=== PATIENT | male | born 1960 | race Caucasian/White ===

== ENCOUNTER → 2019-04-06 | Day surgery (SDC) | payer OTHER ==
--- NOTE | 2019-04-02 12:41 | Diagnostic Imaging Report ---
EXAMINATION: CHEST 2 VIEWS INDICATION: Pre-operative. COMPARISON: None FINDINGS: TUBES and LINES: None. LUNGS: Lungs are well inflated. Lungs are clear. There is no evidence of pneumonia or pulmonary edema. PLEURA: No pleural effusion or pneumothorax. HEART AND MEDIASTINUM: The cardiomediastinal silhouette is unremarkable. BONES AND SOFT TISSUES: No acute osseous lesion. Soft tissues are unremarkable. UPPER ABDOMEN: No free air under the diaphragm. IMPRESSION: No acute radiographic abnormality. Signed by: Dr. Juan Willis MD on 04/02/2019 12:38 PM
--- NOTE | 2019-04-05 12:24 | Pre Op History & Physical ---
DATE OF SURGERY: 04/06/2019. CHIEF COMPLAINT: Left neck mass. HISTORY OF PRESENT ILLNESS: This 58 years old male was noted to have 1 year history of left neck mass. The patient has been treated with antibiotics with no improvement. The patient had a MRI of the C-spine, which also confirmed a neck mass. He denies any dysphagia, odynophagia, or shortness of breath. The patient smokes a pack and a half a day and drinks a few beers per day. CT scan of the neck ordered by me showed the patient has multiple variable sized nodules and lymph nodes in the left posterior triangle, lymphoma and inflammatory disease and metastatic disease cannot be ruled out. REVIEW OF SYSTEMS: System review showed no recent cardiovascular, respiratory, GI problem. PAST MEDICAL HISTORY: The patient has a history of hepatitis C. PAST SURGICAL HISTORY: He has no previous surgery. ALLERGIES: HE IS ALLERGIC TO PENICILLIN, AMPICILLIN, AND TETRACYCLINE. MEDICATIONS: He is on hydrocodone, Flexeril, and ibuprofen. SOCIAL HISTORY: He smokes about a pack and a half a day and drinks about three beers per day. FAMILY HISTORY: Noncontributory. PHYSICAL EXAMINATION: VITAL SIGNS: On examination, the patient's vital signs were within normal limits. He was seen with his . HEENT: Ear exam showed normal tympanic membranes bilaterally. Nasal exam showed deviated nasal septum on the right side about 20%. Nasal endoscopy showed mobile vocal folds bilaterally with no lesion in the hypopharynx. Oropharynx and oral cavity showed dentures upper and lower. No other abnormality was noted. NECK: Show left neck mass from the jugulodigastric area all the way to the posterior triangle. No thyroid is palpable. CHEST: Showed good air entry bilaterally. CARDIOVASCULAR: Showed S1, S2. No murmur noted. ASSESSMENT AND PLAN: Mr. García has left neck masses. This has been going on for about a year. The suggested treatment is panendoscopy, biopsy, and excisional biopsy of left neck mass, possibly in the jugulodigastric area but also possibly in the posterior triangle and other necessary procedure. Complication of procedure includes, but not limited to bleeding, infection, facial nerve injury, accessory nerve injury, perforation of the esophagus, pneumomediastinum, mediastinitis, airway compromise, persistent recurrence of problem along with great auricular nerve injury and hypoglossal nerve injury along with poor cosmetic results. Alternative will be continue observation, fine-needle aspiration of the lymph node. The patient and his have elected to undergo surgical procedure. He has been advised to stop his ibuprofen at least 5 to 7 days before surgery. The patient had a chest x-ray before surgery, which did not show any abnormality. MD SIVA Zambrano/KENIA /[id number] cc: Rigo Strong
[~2019-04-06] MED LIST: ACETAMINOPHEN 1000 MG/100 ML 100 ML IV ONE; CYCLOBENZAPRINE10 MG PO; DEXAMETHASONE SOD PHOS INJ 4 MG/ML VIAL ONE; FENTANYL CITRATE/PF 100MCG/2 ML INJ ONE; HYDROCODONE/APAP 7.5MG-325MG 1 EA TAB ONE; IBUPROFEN600 MG PO; LIDOCAINE 1% W/EPINEPHRINE 20 ML VIAL ONE; LIDOCAINE HCL (LTA) 4 ML SOLN ONE; LIDOCAINE HCL 2% LOCAL INJ 5 ML SDV VIAL INJ ONE; MIDAZOLAM HCL 2 MG/2 ML VIAL ONE; NORCO 10-325 T1 EACH PO; ONDANSETRON HCL INJ 2MG/ML 2ML 2 MG/ML VIAL ONE; PROPOFOL IV EMULSION 10 MG/ML 20 ML VIAL ONE; ROCURONIUM BROMIDE 10 MG/ML 5ML VIAL ONE; SEVOFLURANE INHAL SOLN 250 ML PEN BTL ONE
--- OUTSIDE RECORDS SUMMARY | 2019-04-06 09:18 | XMS REPORT | Clinical Summary ---
Author Author [facility] Organization [facility] Address Unknown Phone Unavailable Care Team Providers Care Heavy Equipment Diesel Mechanic Name Role Phone Asked, No Pcp PCP Unavailable Allergies Comments Active Allergy Reactions Severity Noted Date Ampicillin 11/18/2017 Penicillin 11/18/2017 Tetracycline 11/18/2017 Medications End Date Status Medication Sig Dispensed Refills Start Date Active cyclobenzaprine Take 5 mg by 1 (FLEXERIL) 5 mg tablet mouth 2 (two) 8 times a day. Active HYDROcodone-acetaminophen 0 (NORCO) 10-325 mg per 8 tablet Active gabapentin (NEURONTIN) Take 100 mg 0 100 mg capsule by mouth 2 (two) times a day. Active sofosbuvir-velpatasvir Take 1 tablet 0 (EPCLUSA) 400-100 mg by mouth tablet daily. Active ribavirin (REBETOL) 200 Take 200 mg 0 MG capsule by mouth daily before breakfast. Active ribavirin (REBETOL) 200 Take 400 mg 0 MG capsule by mouth every evening. Active diclofenac (VOLTAREN) 1 % Apply 100 g 1 gel topically 4 8 (four) times a day. Active Problems Problem Noted Date Neck pain, musculoskeletal 05/12/2018 Hepatic fibrosis 05/12/2018 Abnormal LFTs 11/18/2017 Rash of hands 11/18/2017 Hepatitis C virus infection without hepatic coma 11/18/2017 Itching 11/18/2017 Encounters Care Team Description Date Type Specialty Arabella Juarez MA 01/01/2019 Telephone Hepatology Arabella Juarez MA Hepatitis C virus infection without hepatic coma, unspecified chronicity (Primary Dx) 12/09/2018 Orders Only Hepatology Alphonso Caballero MD Roitsch, Ashley Aryn, CHRISTINA Chronic hepatitis C without hepatic coma (HCC) (Primary Dx); Hepatic fibrosis; Abnormal LFTs 07/16/2018 Office Visit Hepatology Alphonso Caballero MD 07/09/2018 Telephone Hepatology Indra Burris MD Acute hepatitis C virus infection without hepatic coma; Hepatic fibrosis; Abnormal LFTs; Rash of hands 07/08/2018 Hospital Radiology Encounter Indra Burris MD Acute hepatitis C virus infection without hepatic coma; Hepatic fibrosis; Abnormal LFTs; Rash of hands 07/08/2018 Hospital Radiology Encounter Arabella Juarez MA Chronic hepatitis C without hepatic coma (HCC) (Primary Dx) 06/26/2018 Orders Only Hepatology Richa Griffith MA 06/23/2018 Refill Hepatology Alphonso Caballero MD Calaris, Deborah, PAC Acute hepatitis C virus infection without hepatic coma (Primary Dx); Hepatic fibrosis; Abnormal LFTs; Rash of hands 06/16/2018 Office Visit Hepatology Alphonso Caballero MD Calaris, Deborah, PAC Hepatitis C virus infection without hepatic coma, unspecified chronicity (Primary Dx); Rash of hands; Itching; Abnormal LFTs; Neck pain, musculoskeletal; Hepatic fibrosis 05/12/2018 Office Visit Hepatology Arabella Juarez MA Hepatitis C virus infection without hepatic coma, unspecified chronicity (Primary Dx) 04/09/2018 Orders Only Hepatology after 04/05/2018 Family History Medical History Relation Name Comments Heart attack Father Diabetes Mother Heart attack Mother Diabetes Sister Heart attack Sister Relation Name Status Comments Father Mother Sister Social History Date Tobacco Use Types Packs/Day Years Used Current Every Day Smoker 2 Smokeless Tobacco: Never Used Alcohol Use Drinks/Week oz/Week Comments Yes 14 Standard 8.4 drinks or equivalent Sex Assigned at Date Recorded Not on file Industry Job Start Date Occupation Not on file Not on file Not on file Travel End Travel History Travel Start No recent travel history available. Last Filed Vital Signs Time Taken Vital Sign Reading 07/16/2018 11:19 AM CDT Blood Pressure 136/80 07/16/2018 11:19 AM CDT Pulse 80 07/16/2018 11:19 AM CDT Temperature 36.1 C (97 F) 05/12/2018 2:18 PM CDT Respiratory Rate 18 07/16/2018 11:19 AM CDT Oxygen Saturation 99% - Inhaled Oxygen - Concentration 07/16/2018 11:19 AM CDT Weight 81.2 kg (179 lb) 06/16/2018 10:56 AM CDT Height 175.3 cm (5' 9") 06/16/2018 10:56 AM CDT Body Mass Index 26.43 Plan of Treatment Health Maintenance Due Date Last Done Comments COLONOSCOPY SCREENING 2011 SHINGLES VACCINES (#1) 2011 INFLUENZA VACCINE 04/22/2019 Procedures Comments Procedure Name Priority Date/Time Associated Diagnosis PROTHROMBIN TIME WITH INR Routine 10/06/2018 Chronic hepatitis C 2:13 PM BATT MACHINE OPERATOR without hepatic coma (HCC) HCV QUANTITATIVE PCR Routine 10/06/2018 Chronic hepatitis C 2:13 PM BATT MACHINE OPERATOR without hepatic coma (HCC) GGT Routine 10/06/2018 Chronic hepatitis C 2:13 PM BATT MACHINE OPERATOR without hepatic coma (HCC) COMPREHENSIVE METABOLIC Routine 10/06/2018 Chronic hepatitis C PANEL 2:13 PM BATT MACHINE OPERATOR without hepatic coma (HCC) CBC WITH PLATELET AND Routine 10/06/2018 Chronic hepatitis C DIFFERENTIAL 2:13 PM BATT MACHINE OPERATOR without hepatic coma (HCC) ALPHA FETOPROTEIN Routine 10/06/2018 Chronic hepatitis C 2:13 PM BATT MACHINE OPERATOR without hepatic coma (HCC) PROTHROMBIN TIME WITH INR Routine 07/08/2018 Chronic hepatitis C 12:35 PM CDT without hepatic coma (HCC) HCV QUANTITATIVE PCR Routine 07/08/2018 Chronic hepatitis C 12:35 PM CDT without hepatic coma (HCC) ALPHA FETOPROTEIN Routine 07/08/2018 Chronic hepatitis C 12:35 PM CDT without hepatic coma (HCC) COMPREHENSIVE METABOLIC Routine 07/08/2018 Chronic hepatitis C PANEL 12:35 PM CDT without hepatic coma (HCC) CBC WITH PLATELET AND Routine 07/08/2018 Chronic hepatitis C DIFFERENTIAL 12:35 PM CDT without hepatic coma (HCC) US ABDOMINAL DOPPLER Routine 07/08/2018 Acute hepatitis C virus 11:24 AM CDT infection without hepatic coma Hepatic fibrosis Abnormal LFTs Rash of hands US ABDOMINAL WITH LIVER Routine 07/08/2018 Acute hepatitis C virus ELASTOGRAPHY 10:29 AM CDT infection without hepatic coma Hepatic fibrosis Abnormal LFTs Rash of hands HEPATITIS C VIRAL RNA, Routine 06/16/2018 Acute hepatitis C virus QUANTITATIVE REAL-TIME 11:37 AM CDT infection without hepatic PCR WITH REFLXS coma Hepatic fibrosis Abnormal LFTs Rash of hands PROTHROMBIN TIME WITH INR Routine 06/16/2018 Acute hepatitis C virus 11:37 AM CDT infection without hepatic coma Hepatic fibrosis Abnormal LFTs Rash of hands COMPREHENSIVE METABOLIC Routine 06/16/2018 Acute hepatitis C virus PANEL 11:37 AM CDT infection without hepatic coma Hepatic fibrosis Abnormal LFTs Rash of hands CBC WITH PLATELET AND Routine 06/16/2018 Acute hepatitis C virus DIFFERENTIAL 11:37 AM CDT infection without hepatic coma Hepatic fibrosis Abnormal LFTs Rash of hands PROTHROMBIN TIME WITH INR Routine 06/03/2018 Hepatitis C virus 11:52 AM CDT infection without hepatic coma, unspecified chronicity Rash of hands Itching Abnormal LFTs HCV QUANTITATIVE PCR Routine 06/03/2018 Hepatitis C virus 11:52 AM CDT infection without hepatic coma, unspecified chronicity Rash of hands Itching Abnormal LFTs GGT Routine 06/03/2018 Hepatitis C virus 11:52 AM CDT infection without hepatic coma, unspecified chronicity Rash of hands Itching Abnormal LFTs COMPREHENSIVE METABOLIC Routine 06/03/2018 Hepatitis C virus PANEL 11:52 AM CDT infection without hepatic coma, unspecified chronicity Rash of hands Itching Abnormal LFTs CBC WITH PLATELET AND Routine 06/03/2018 Hepatitis C virus DIFFERENTIAL 11:52 AM CDT infection without hepatic coma, unspecified chronicity Rash of hands Itching Abnormal LFTs PROTHROMBIN TIME WITH INR Routine 05/12/2018 Hepatitis C virus 3:18 PM CDT infection without hepatic coma, unspecified chronicity Abnormal LFTs HCV QUANTITATIVE PCR Routine 05/12/2018 Hepatitis C virus 3:18 PM CDT infection without hepatic coma, unspecified chronicity Abnormal LFTs GGT Routine 05/12/2018 Hepatitis C virus 3:18 PM CDT infection without hepatic coma, unspecified chronicity Abnormal LFTs COMPREHENSIVE METABOLIC Routine 05/12/2018 Hepatitis C virus PANEL 3:18 PM CDT infection without hepatic coma, unspecified chronicity Abnormal LFTs CBC WITH PLATELET AND Routine 05/12/2018 Hepatitis C virus DIFFERENTIAL 3:18 PM CDT infection without hepatic coma, unspecified chronicity Abnormal LFTs HCV QUANTITATIVE PCR Routine 04/21/2018 Hepatitis C virus 2:11 PM CDT infection without hepatic coma, unspecified chronicity PROTHROMBIN TIME WITH INR Routine 04/21/2018 Hepatitis C virus 2:11 PM CDT infection without hepatic coma, unspecified chronicity GGT Routine 04/21/2018 Hepatitis C virus 2:11 PM CDT infection without hepatic coma, unspecified chronicity COMPREHENSIVE METABOLIC Routine 04/21/2018 Hepatitis C virus PANEL 2:11 PM CDT infection without hepatic coma, unspecified chronicity CBC WITH PLATELET AND Routine 04/21/2018 Hepatitis C virus DIFFERENTIAL 2:11 PM CDT infection without hepatic coma, unspecified chronicity ALPHA FETOPROTEIN Routine 04/21/2018 Hepatitis C virus 2:11 PM CDT infection without hepatic coma, unspecified chronicity after 04/05/2018 Results * HCV Quantitative PCR (10/06/2018 2:13 PM BATT MACHINE OPERATOR) Only the most recent of 5 results within the time period is included. Hepatitis C <15 NOT DETECTED NOT DETECTED IU/mL [facility] quantitative, [facility] PCR ING II Hepatitis C <1.18 NOT DETECTED NOT DETECTED Log [facility] quantitative, IU/mL [facility] PCR ING II (Always Comment: [facility] message) This test was performed using [facility] Real-Time Polymerase Chain ING II Reaction. Reportable Range: 15 IU/mL to 100,000,000 IU/mL (1.18 Log IU/mL to 8.00 Log IU/mL). The analytical performance characteristics of this assay have been determined by [facility]. The modifications have not been cleared or approved by the FDA. This assay has been validated pursuant to the CLIA regulations and is used for clinical purposes. For more information on this test, go to: http://meets.iPowerUp/faq/KPS07z0 (This link is being provided for informational/ educational purposes only.) Specimen Blood Resulting Agency Comment Performing Organization Information: Site ID: [id number] Name: [facility] Address: [address] [place] [id number] Director: Dr. Alphonso Ernst Performing Organization Address [facility] [address]/[facility] Phone Number [facility] [employer] [id number] II * Alpha fetoprotein (10/06/2018 2:13 PM BATT MACHINE OPERATOR) Only the most recent of 3 results within the time period is included. Pathologist [facility] Alpha 2.3 <6.1 ng/mL [facility] fetoprotein Comment: [facility] This test was performed using ING II the Jose David Windham chemiluminescent method. Values obtained from different assay methods cannot be used interchangeably. AFP levels, regardless of value, should not be interpreted as absolute evidence of the presence or absence of disease. Specimen Blood Resulting Agency Comment Performing Organization Information: Site ID: [id number] Name: [facility] Address: [address] [place] [id number] Director: Dr. Alphonso Ernst Performing Organization Address [facility] [address]/[facility] Hospital[facility] Phone Number [facility] [employer] [address] II * Prothrombin time with INR (10/06/2018 2:13 PM BATT MACHINE OPERATOR) Only the most recent of 6 results within the time period is included. INR 1.1 [facility] Comment: [facility] Reference ING II Range 0.9-1.1 Moderate-intensity Warfarin Therapy 2.0-3.0 Higher-intensity Warfarin Therapy 3.0-4.0 Prothrombin 11.4 9.0 - 11.5 sec [facility] time Comment: [employer] [facility] For more information on this ING II test, go to: http://education.iPowerUp/faq/EXH833 Specimen Blood Resulting Agency Comment Performing Organization Information: Site ID: IG Name: [facility] Address: [address] [address] Director: Dr. Alphonso Ernst Performing Organization Address City/State/Zipcode Phone Number JOSE J BA [address] [place] [address] II * CBC with platelet and differential (10/06/2018 2:13 PM BATT MACHINE OPERATOR) Only the most recent of 6 results within the time period is included. WBC 7.4 3.8 - 10.8 [facility] Thousand/uL [facility] ING II RBC 5.79 4.20 - 5.80 [facility] Million/uL [facility] ING II HGB 17.0 13.2 - 17.1 g/dL [facility] ING II HCT 48.5 38.5 - 50.0 % [facility] ING II MCV 83.8 80.0 - 100.0 fL [facility] ING II MCH 29.4 27.0 - 33.0 pg [facility] ING II MCHC 35.1 32.0 - 36.0 g/dL [facility] ING II RDW 15.4 (H) 11.0 - 15.0 % [facility] ING II Platelet count 231 140 - 400 [facility] Thousand/uL [facility] ING II MPV 11.6 7.5 - 12.5 fL [facility] ING II Neutrophils, 3,004 1,500 - 7,800 [facility] absolute cells/uL [facility] ING II Lymphocytes, 3,352 850 - 3,900 cells/uL [facility] absolute [facility] ING II Monocytes, 829 200 - 950 cells/uL [facility] absolute [facility] ING II Eosinophils, 148 15 - 500 cells/uL [facility] absolute [facility] ING II Basophils, 67 0 - 200 cells/uL [facility] absolute [facility] ING II Neutrophils 40.6 % [facility] ING II Lymphocytes 45.3 % [facility] ING II Monocytes 11.2 % [facility] ING II Eosinophils 2.0 % [facility] ING II Basophils + RC 0.9 % [facility] ING II Specimen Blood Resulting Agency Comment Performing Organization Information: Site ID: [id number] Name: [facility] Address: [address] [place] [id number] Director: Dr. Alphonso Ernst Performing Organization Address City/[facility] [address]/Zipcode Phone Number [facility] [employer] [id number] [place] [address] II * GGT (10/06/2018 2:13 PM BATT MACHINE OPERATOR) Only the most recent of 4 results within the time period is included. GGT 25 3 - 85 U/L [facility] ING II Specimen Blood Resulting Agency Comment Performing Organization Information: Site ID: IG Name: [facility] Address: [address] [place] [phone] Director: Dr. Alphonso Ernst Performing Organization Address [facility] [address]/[facility] Hospitalcode Phone Number [employer] [address] II * Comprehensive metabolic panel (10/06/2018 2:13 PM BATT MACHINE OPERATOR) Only the most recent of 6 results within the time period is included. Pathologist [facility] Glucose 128 (H) 65 - 99 mg/dL [facility] Comment: [facility] Fasting ING II reference interval For someone without known diabetes, a glucose value >125 mg/dL indicates that they may have diabetes and this should be confirmed with a follow-up test. BUN, whole 25 7 - 25 mg/dL [facility] blood [facility] ING II Creatinine 0.94 0.70 - 1.33 mg/dL [facility] Comment: [facility] For patients >49 years of age, ING II the reference limit for Creatinine is approximately 13% higher for people identified as -Prydeinig. EGFR Non-Afr. 90 > OR=60 [facility] Prydeinig mL/min/1.73m2 [facility] ING II EGFR 104 > OR=60 [facility] Prydeinig mL/min/1.73m2 [facility] ING II BUN/creatinine NOT APPLICABLE 6 - 22 (calc) [facility] ratio [facility] ING II Sodium 138 135 - 146 mmol/L [facility] ING II Potassium 4.3 3.5 - 5.3 mmol/L [facility] ING II Chloride 103 98 - 110 mmol/L [facility] ING II CO2 28 20 - 32 mmol/L [facility] ING II Calcium 9.7 8.6 - 10.3 mg/dL [facility] ING II Protein 7.9 6.1 - 8.1 g/dL [facility] ING II Albumin, S 4.5 3.6 - 5.1 g/dL [facility] ING II Globulin, total 3.4 1.9 - 3.7 g/dL [facility] (calc) [facility] ING II Albumin/globuli 1.3 1.0 - 2.5 (calc) [facility] n ratio [facility] ING II Total bilirubin 0.5 0.2 - 1.2 mg/dL [facility] ING II Alkaline 58 40 - 115 U/L [facility] phosphatase [facility] ING II AST 24 10 - 35 U/L [facility] ING II ALT 17 9 - 46 U/L [facility] ING II Specimen Blood Resulting Agency Comment Performing Organization Information: Site ID: [id number] Name: [facility] Address: [address] [place] [address] [place] [address] Director: Dr. Alphonso Ernst Performing Organization Address City/State/Zipcode Phone Number JOSE J BA [address] [facility] [place] [address] II * US Abdominal Doppler (07/08/2018 11:24 AM CDT) Specimen Narrative Performed At EXAMINATION:US ABDOMINAL DOPPLER [facility] CLINICAL HISTORY:B17.10 Acute hepatitis C without hepatic coma, K74.0 Hepatic fibrosis, Portal HTN, US liver W elastography & abdomen doppler...liver protocol COMPARISON:None TECHNIQUE: Treviño scale, color Doppler and spectral waveform analysis of the hepatic vasculature. IMPRESSION: 1. PORTAL VEINS: *Main portal vein: The main portal vein is patent. Portal vein velocity is 32 cm/sec.Normal flow direction. *Left Portal Vein: The left portal vein is patent. *Right Portal Vein:The right portal vein is patent. 2. HEPATIC VEINS: *Right Hepatic Vein: The right hepatic vein is patent. *Middle Hepatic Vein: The middle hepatic vein is patent. *Left Hepatic Vein: The left hepatic vein is patent. 3. HEPATIC ARTERIES: *Right Hepatic Artery: The right hepatic artery is patent. *Left Hepatic Artery: The left hepatic artery is patent. 4. IVC: The inferior vena cava is patent. 5. SMV: The superior mesenteric vein is patent. 6. SPLENIC ARTERY/VEINS: *Splenic Artery/Vein at Spleen: The splenic artery/vein atthe spleen are patent. Venous velocity 45 cm/s. *Splenic Artery/Vein at Midline: The splenic artery/vein at the midline are patent. Venous velocity 26 cm/s. Procedure Note Interface, Radiology Results Incoming - 07/08/2018 2:03 PM CDT EXAMINATION: US ABDOMINAL DOPPLER CLINICAL HISTORY: B17.10 Acute hepatitis C without hepatic coma, K74.0 Hepatic fibrosis, Portal HTN, US liver W elastography & abdomen doppler...liver protocol COMPARISON: None TECHNIQUE: Treviño scale, color Doppler and spectral waveform analysis of the hepatic vasculature. IMPRESSION: 1. PORTAL VEINS: * Main portal vein: The main portal vein is patent. Portal vein velocity is 32 cm/sec. Normal flow direction. * Left Portal Vein: The left portal vein is patent. * Right Portal Vein:The right portal vein is patent. 2. HEPATIC VEINS: * Right Hepatic Vein: The right hepatic vein is patent. * Middle Hepatic Vein: The middle hepatic vein is patent. * Left Hepatic Vein: The left hepatic vein is patent. 3. HEPATIC ARTERIES: * Right Hepatic Artery: The right hepatic artery is patent. * Left Hepatic Artery: The left hepatic artery is patent. 4. IVC: The inferior vena cava is patent. 5. SMV: The superior mesenteric vein is patent. 6. SPLENIC ARTERY/VEINS: * Splenic Artery/Vein at Spleen: The splenic artery/vein at the spleen are patent. Venous velocity 45 cm/s. * Splenic Artery/Vein at Midline: The splenic artery/vein at the midline are patent. Venous velocity 26 cm/s. Performing Organization Address City/State/Zipcode Phone Number [facility] [address] [place] [address] * US Liver with Elastography (07/08/2018 10:29 AM CDT) Specimen Narrative Performed At Abdominal ultrasound with liver elastography, 07/08/2018 [facility] Clinical history: Fatty liver. Hepatitis C. Fibrosis. Comparison: None Technique: Grayscale and color Doppler ultrasound abdomen with elastography. Findings: Inferior vena cava and abdominal aorta: Imaged segments of the IVC and aorta are of normal caliber. Pancreas: Imaged segments are normal. Liver: Right liver span: 17.2 cm. Increased parenchymal echogenicity with a nodular liver margin. Portal vein diameter: 1.3 cm; normal flow direction. 2D-Shear wave elastography was performed; 10 measurements were obtained from the right hepatic lobe per protocol. The median shear wave velocity was 1.43 m/s, most compatible with F>0 fibrosis (see reference ranges for GE Logiq E9 with C1-6 Mhz probe below) GE Tech urSelfiq E9 reference ranges: METAVIRSW velocity Stiffness F>01.35 m/s5.48 kPa F>11.66 m/s8.29 kPa F>21.77 m/s9.40 kPa F>31.99 m/s11.9 kPa Reliability: The IQR was 0.63, resulting in an IQR/median ratio of 0.254. (A value of < 0.3 indicates a reliable dataset). Gallbladder: Normal. Wall thickness 0.2 cm. Common bile duct diameter: 0.4 cm. Right kidney: Span: 11.4 cm. Normal kidney. Left kidney: Span: 11.4 cm. Normal kidney. Spleen: Span: 14 cm. Impression: Hepatomegaly with a nodular contour and increased echogenicity. Elastography consistent with F>0 fibrosis. Splenomegaly. Procedure Note Hm Interface, Radiology Results Incoming - 07/08/2018 2:02 PM CDT Abdominal ultrasound with liver elastography, 07/08/2018 Clinical history: Fatty liver. Hepatitis C. Fibrosis. Comparison: None Technique: Grayscale and color Doppler ultrasound abdomen with elastography. Findings: Inferior vena cava and abdominal aorta: Imaged segments of the IVC and aorta are of normal caliber. Pancreas: Imaged segments are normal. Liver: Right liver span: 17.2 cm. Increased parenchymal echogenicity with a nodular liver margin. Portal vein diameter: 1.3 cm; normal flow direction. 2D-Shear wave elastography was performed; 10 measurements were obtained from the right hepatic lobe per protocol. The median shear wave velocity was 1.43 m/s, most compatible with F>0 fibrosis (see reference ranges for GE Logiq E9 with C1- 6 Mhz probe below) GE GotaCopy E9 reference ranges: METAVIR SW velocity Stiffness F>0 1.35 m/s 5.48 kPa F>1 1.66 m/s 8.29 kPa F>2 1.77 m/s 9.40 kPa F>3 1.99 m/s 11.9 kPa Reliability: The IQR was 0.63, resulting in an IQR/median ratio of 0.254. (A value of < 0.3 indicates a reliable dataset). Gallbladder: Normal. Wall thickness 0.2 cm. Common bile duct diameter: 0.4 cm. Right kidney: Span: 11.4 cm. Normal kidney. Left kidney: Span: 11.4 cm. Normal kidney. Spleen: Span: 14 cm. Impression: Hepatomegaly with a nodular contour and increased echogenicity. Elastography consistent with F>0 fibrosis. Splenomegaly. Performing Organization Address City/State/Zipcode Phone Number [facility] [address] [place] [address] * Hepatitis C viral RNA, quantitative real-time PCR with reflexes (06/16/2018 11:37 AM CDT) Hepatitis C <15 NOT DETECTED IU/mL [facility] quantitative, DIAGNOSTICS PCR HCV RNA, <1.18 NOT DETECTED LogIU/mL [facility] quantitative Comment: DIAGNOSTICS real time PCR REFERENCE RANGE: NOT DETECTEDIU/mL NOT DETECTEDLog IU/mL This test was performed using Real-Time Polymerase Chain Reaction Reportable range is 15 to 100,000,000 IU/mL (1.18-8.00 Log IU/mL). The analytical performance characteristics of this assay have been determined by [facility]. The modifications have not been cleared or approved by the FDA. This assay has been validated pursuant to the CLIA regulations and is used for clinical purposes. For additional information, please refer to http://education.[employer]vel[employer].com/faq/WGB64i5 (This link is being provided for informational/ educational purposes only.) Specimen Resulting Agency Comment Performing Organization Information: Site ID: [id number] Name: [facility] Address: [address] [place] [phone] Director: Natalio Turner MD Performing Organization Address City/[facility] [address]/Zipcode Phone Number [employer] [address] [place] [address] [phone] after 04/05/2018 Insurance Type Payer Benefit Subscriber ID Effective Phone Address Plan / Dates Group PPO BCBS BCBS xxxxxxxxxxxx 2017- CHOICE Present PPO/CAITY MERCADO PPO Advance Directives Patient has advance care planning documents on file. For more information, theresa valencia contact: Star Gil [address] [place] [address]
--- OUTSIDE RECORDS SUMMARY | 2019-04-06 09:20 | XMS REPORT ---
Author [facility] Address Unknown Phone Unavailable Care Team Providers Care Senior Vice President And Chief Information Officer Name Role Phone Mickey NAPOLES Unavailable Unavailable Problems This patient has no known problems. Allergies, Adverse Reactions, Alerts This patient has no known allergies or adverse reactions. Medications This patient has no known medications. Results Test Description Test Time Test Comments Text Results Atomic Results Result Comments CHEST 2 VIEWS 2019-04-02 12:37:00 [place] [address] Patient Name: SACHA MARSHALL JR MR #: [id number] : 1960 Age/Sex: 58/M Req #: [id number] Adm Physician: Ordered by: DENNIS NAPOLES MD Report #: [id number] Location: OR Room/Bed: Procedure: [id number] DX/CHEST 2 VIEWS Exam Date: Exam Time: REPORT STATUS: Signed EXAMINATION: CHEST 2 VIEWS INDICATION: Pre-operative. COMPARISON: None FINDINGS: TUBES and LINES: None. LUNGS: Lungs are well inflated. Lungs are clear. There is no evidence of pneumonia or pulmonary edema. PLEURA: No pleural effusion or pneumothorax. HEART AND MEDIASTINUM: The cardiomediastinal silhouette is unremarkable. BONES AND SOFT TISSUES: No acute osseous lesion. Soft tissues are unremarkable. UPPER ABDOMEN: No free air under the diaphragm. IMPRESSION: No acute radiographic abnormality. Signed by: Dr. Jeffy Tate MD on 04/02/2019 12:38 PM Dictated By: JEFFY TATE MD 1238 Transcribed By: JAYLIN on 04/02/19 1238 COPY TO: DENNIS NAPOLES MD
[2019-04-06 10:52] LABS: INR 0.97; PROTHROMBIN TIME 13.4 seconds (11.9-14.5)
[2019-04-06 10:53] LABS: PARTIAL THROMBOPLASTIN TIME 32.9 seconds (23.8-35.5)
--- NOTE | 2019-04-06 14:25 | Operative Report ---
DATE OF PROCEDURE: 04/06/2019 SURGEON: Shravan Soni MD CHIEF COMPLAINT: Left posterior triangle mass. POSTOPERATIVE DIAGNOSIS: Left posterior triangle mass. OPERATIVE PROCEDURES: Direct laryngoscopy, rigid esophagoscopy, rigid bronchoscopy, biopsy of left tongue base, biopsy of the right tonsil area midportion, excision of biopsy of left neck mass with appropriate closure. CLERK ENTRY LEVEL: Sol Hassan. ANESTHESIA: Anesthesiology Group. HISTORY OF PRESENT ILLNESS: This is a 58-year-old male, who has one-year history of mass in the left neck. The patient denies any dysphagia, odynophagia, or shortness of breath. The patient is a smoker. On examination, he was noted to have fullness in the left neck in the midportion to the inferior portion of the posterior triangle. A CT scan of the neck that was done showed the patient has cluster of lymphadenopathy from the level of the parotid and along the posterior triangle on the way to the inferior portion of the neck. No other abnormality was noted. It was decided that excisional biopsy of the left neck mass along with panendoscopy and biopsy and other necessary procedure will be beneficial for him. DESCRIPTION OF PROCEDURE: The patient was taken to the operating room, put under general anesthesia, endotracheally intubated. The neck excision was undertaken first. An incision was made in about the midportion of the neck in a horizontal fashion. The area was injected with 1% Xylocaine with 1:100,000 epinephrine for hemostasis. The area was prepped and draped in sterile fashion. The dissection was carried down to the subplatysmal plane. Superior and inferior flap was elevated. The anterior border of the SCM was identified and this was from surrounding soft tissue. The approach was to go by rotating the SCM laterally to get exposure to the posterior triangle. The internal jugular vein come into view, this was not disturbed. A branch of the IJ was noted. This was examined high after getting exposure. With some difficulty, the SCM was rotated and posterior to the IJ lymphadenopathy come into view. These were dissected from the surrounding soft tissue using bipolar cautery. The lymph node was delivered and sent for permanent section. Closure of the area was undertaken. The area was irrigated with copious amount of normal saline. Any bleeding area was controlled using the bipolar cautery. A one 8-inch Crosslake drain was inserted into the underneath the SCM. The wound was irrigated with copious amount of normal saline. The platysmal flap that was elevated was advanced in the midline and closed on itself using 0 Vicryl suture in interrupted fashion. The skin incision was closed using 4-0 Prolene suture in an interrupted fashion. The Estevan drain was sutured in place. The pressure dressing was applied. The panendoscopy was performed. The patient was repositioned. The rigid esophagoscopy was performed. Esophagoscope was passed through the cricopharyngeus muscle. The esophagus was examined to about 25 cm from the incisors, no abnormality was noted. The esophagoscope was retrieved. The rigid bronchoscopy was performed. A size #4 bronchoscope with Medina wire was used. The bronchoscope was passed parallel to the endotracheal tube. Endotracheal tube cuff was deflated. The trachea was examined down to the jaya, parallel to the endotracheal tube. No abnormality was noted. The bronchoscope was retrieved. Endotracheal tube cuff was reinflated. The direct laryngoscopy was performed. The Eduar laryngoscope was used. The oropharynx and oral cavity were examined. Increased lymphoid tissue was noted in the left tongue base. This was biopsied using a cup forceps. The papillary lesion was noted in the midportion of the right tonsil. This was biopsied again using a cup forceps. The piriform sinus on either side was examined, no abnormality was noted. The larynx was examined. Both the true and false vocal folds were examined, no abnormality was noted. The patient tolerated the above procedure well with estimated blood loss of about 5 to 10 mL. He was given 20 mg of Decadron intraoperatively. The patient was able to be transferred to the recovery room in stable condition. MD SIVA Zambrano/JAYNEL /[id number]
[2019-04-06 14:50] VITALS: BP 139/81
== END | disposition home or self-care (01) ==
LOC: OR 09:16
PROVIDERS: ATTEND Otolaryngology Otolaryngology/Facial Plastic Surgery
DX: C96.9 Malignant neoplasm of lymphoid, hematopoietic and related tissue, unspecified (principal); D10.4 Benign neoplasm of tonsil; Z88.1 Allergy status to other antibiotic agents; Z88.0 Allergy status to penicillin; Z01.810 Encounter for preprocedural cardiovascular examination; Z01.818 Encounter for other preprocedural examination; Z86.19 Personal history of other infectious and parasitic diseases
CPT/HCPCS: 31535; 31622; 36415; 38510; 43191; 71046; 85610; 85730; 88305; 88342; 93005; J0131; J1100; J2001; J2250; J2405; J2704; J3010; 88304

== ENCOUNTER → 2019-04-27 | Day surgery (SDC) | payer OTHER ==
[~2019-04-27] MED LIST changes: -ACETAMINOPHEN 1000 MG/100 ML 100 ML IV ONE; +ACETAMINOPHEN 1000 MG/100 ML IV ONE; +BUPIVACAINE 0.5%/EPI 30 ML SDV INJ ONE; +BUPIVACAINE HCL 0.5% INJ 30 ML VIAL INJ ONE; -HYDROCODONE/APAP 7.5MG-325MG 1 EA TAB ONE; -LIDOCAINE 1% W/EPINEPHRINE 20 ML VIAL ONE; -LIDOCAINE HCL (LTA) 4 ML SOLN ONE
--- NOTE | 2019-04-27 04:22 | Pre Op History & Physical ---
CHIEF COMPLAINT: Left neck mass and left tonsillar mass. HISTORY OF PRESENT ILLNESS: This 58-year-old male was noted to have left neck left neck mass for about a year. The patient's lesion has been increasing in size. CT scan of the neck showed that the patient has left neck mass. No comment was noted at the time of any primary site. The patient underwent a left neck mass biopsy along with panendoscopy. The panendoscopy did not give primary lesion. 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 Subsequently a PET scan was performed, which showed the left neck mass still present and with increased left tonsillar uptake. REVIEW OF SYSTEMS: System review showed no recent cardiovascular, respiratory, or GI problem. PAST MEDICAL HISTORY: The patient has a history of hepatitis C and "leaky valve". PAST SURGICAL HISTORY: The patient had recent left posterior triangle biopsy with panendoscopy. ALLERGIES: ALLERGIC TO PENICILLIN, AMPICILLIN, AND TETRACYCLINE. MEDICATIONS: He is on hydrocodone, Flexeril, and ibuprofen. SOCIAL HISTORY: The patient smokes about 1-1/2 pack a day. Drink a few drinks per day. FAMILY HISTORY: Noncontributory. PHYSICAL EXAMINATION: VITAL SIGNS: On examination, the patient's vital signs were within normal limits. HEENT: Ear exam show normal tympanic membranes bilaterally. Nasal exam show no obvious abnormality. Oropharynx and oral cavity show 2+ tonsils on the right and 3+ on the left. NECK: Showed left posterior triangle mass. CHEST: Showed good air entry bilaterally. CARDIOVASCULAR: Showed S1, S2. No murmur noted. ASSESSMENT AND PLAN: Mr. García has left posterior triangle mass with likely left tonsillar area being the primary site. Suggested treatment is left tonsillectomy and other necessary procedure. The complication of procedure includes, but not limited to bleeding, infection, hyponasal speech, nasal regurgitation of food, airway distress, persistent recurrence of the problem. Alternatives will be continue observation, biopsy of the tonsillar area in the office setting. The patient and his have elected to undergo surgical procedure. MD SIVA Zambrano/KENIA /[id number]
--- OUTSIDE RECORDS SUMMARY | 2019-04-27 09:20 | XMS REPORT | Clinical Summary ---
Author Author [facility] Address Unknown Phone Unavailable Care Team Providers Care Leather Sorter Name Role Phone Rigo Strong MD PCP Allergies Comments Active Allergy Reactions Severity Noted [...] Encounters Care Team Description Date Type Specialty Shravan Soni MD Malignant neoplasm of head, face, and neck (HCC) 04/15/2019 Hospital Radiology Encounter Shravan Soni MD Malignant neoplasm of head, face, and neck (HCC) (Primary Dx) 04/12/2019 Transcribe Access Orders Arabella Juarez MA 01/01/2019 Telephone Hepatology Arabella Juarez MA Hepatitis C virus infection without hepatic coma, unspecified chronicity (Primary Dx) 12/09/2018 Orders Only Hepatology Alphonso Caballero MD Roitsch, Ashley [facility] Chronic hepatitis C without hepatic coma (HCC) [...] musculoskeletal; Hepatic fibrosis 05/12/2018 Office Visit Hepatology after 04/26/2018 Family History Medical History Relation Name Comments [...] Comments Procedure Name Priority Date/Time Associated Diagnosis PET CT SKULL BASE TO MID Routine 04/15/2019 Malignant neoplasm of THIGH 10:32 AM CDT head, face, and neck (HCC) POC GLUCOSE Routine 04/15/2019 8:43 AM CDT PROTHROMBIN TIME WITH INR Routine 10/06/2018 Chronic hepatitis C 2:13 PM INTAKE SPECIALIST without hepatic coma (HCC) HCV QUANTITATIVE PCR Routine 10/06/2018 Chronic hepatitis C 2:13 PM INTAKE SPECIALIST without hepatic coma (HCC) GGT Routine 10/06/2018 Chronic hepatitis C 2:13 PM INTAKE SPECIALIST without hepatic coma (HCC) COMPREHENSIVE METABOLIC Routine 10/06/2018 Chronic hepatitis C PANEL 2:13 PM INTAKE SPECIALIST without hepatic coma (HCC) CBC WITH PLATELET AND Routine 10/06/2018 Chronic hepatitis C DIFFERENTIAL 2:13 PM INTAKE SPECIALIST without hepatic coma (HCC) ALPHA FETOPROTEIN Routine 10/06/2018 Chronic hepatitis C 2:13 PM INTAKE SPECIALIST without hepatic coma (HCC) PROTHROMBIN TIME WITH [...] without hepatic coma, unspecified chronicity Abnormal LFTs after 04/26/2018 Results * PET/CT Skull Base To Mid Thigh (04/15/2019 10:32 AM CDT) Specimen Narrative Performed At PROCEDURE:PET CT SKULL BASE TO MID THIGH [facility] INDICATION:Initial staging head and neck cancer.Initial treatment strategy. TECHNIQUE:Blood glucose measured at the time of injection was 100 mg/dL. The patient was then injected with 14.9 mCi of 18F-FDG, IV.Approximately one hour later, PET images were acquired from the skull base to the mid thighs. Corresponding, low dose, non-contrast CT scanning was performed as part of the attenuation correction process.Automated dose exposure control was utilized. COMPARISON:No relevant comparison imaging. FINDINGS: Head and neck:No suspicious brain uptake.Normal uptake in the visualized sinuses, orbits, and nasopharynx.Focal uptake is noted by the left tonsil, which appears somewhat enlarged.The maximum SUV is 9.Uptake does not appear to cross midline. Multiple left level 2 and level 3 neck lymph nodes are present, with increased uptake, consistent with metastatic disease.Index left level 2 lymph node demonstrates an SUV of 8.5 and measures 2.2 cm x 1.2 cm.Index left level 3 lymph node demonstrates an SUV of 6 and measures 1.3 cm x 0.9 cm.No suspicious right neck lymph node uptake. Chest:No abnormal mediastinal, hilar, or axillary lymph node uptake.No suspicious pulmonary uptake. Abdomen:Normal uptake in the stomach, spleen, pancreas, liver, and adrenal glands.No abnormal retroperitoneal or mesenteric lymph node uptake.Bowel uptake is physiologic. Pelvis:Physiologic bowel uptake.No abnormal pelvic sidewall or inguinal lymph node uptake. Review of the osseous structures demonstrates no suspicious uptake. 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 [facility]-[id number] Procedure Note [facility], Radiology Results - 04/15/2019 4:32 PM CDT PROCEDURE: PET CT SKULL BASE TO MID THIGH INDICATION: Initial staging head and neck cancer. Initial treatment strategy. TECHNIQUE: Blood glucose measured at the time of injection was 100 mg/dL. The patient was then injected with 14.9 mCi of 18F-FDG, IV. Approximately one hour later, PET images were acquired from the skull base to the mid thighs. Corresponding, low dose, non-contrast CT scanning was performed as part of the attenuation correction process. Automated dose exposure control was utilized. COMPARISON: No relevant comparison imaging. FINDINGS: Head and neck: No suspicious brain uptake. Normal uptake in the visualized sinuses, orbits, and nasopharynx. Focal uptake is noted by the left tonsil, which appears somewhat enlarged. The maximum SUV is 9. Uptake does not appear to cross midline. Multiple left level 2 and level 3 neck lymph nodes are present, with increased uptake, consistent with metastatic disease. Index left level 2 lymph node demonstrates an SUV of 8.5 and measures 2.2 cm x 1.2 cm. Index left level 3 lymph node demonstrates an SUV of 6 and measures 1.3 cm x 0.9 cm. No suspicious right neck lymph node uptake. Chest: No abnormal mediastinal, hilar, or axillary lymph node uptake. No suspicious pulmonary uptake. Abdomen: Normal uptake in the stomach, spleen, pancreas, liver, and adrenal glands. No abnormal retroperitoneal or mesenteric lymph node uptake. Bowel uptake is physiologic. Pelvis: Physiologic bowel uptake. No abnormal pelvic sidewall or inguinal lymph node uptake. Review of the osseous structures demonstrates no suspicious uptake. IMPRESSION: 1. 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 [facility]-[id number] Performing Organization Address City/State/Zipcode Phone Number JENARO [address] [place] [address] * POC glucose (04/15/2019 8:43 AM CDT) [facility] POC glucose 100 65 - 100 mg/dL DANIEL Comment: RESTORATIONIST Meter ID: [id number] [place] Veterinary Bacteriologist: [facility] Specimen Performing Organization Address City/[facility]/Zipcode Phone Number [facility] DEPARTMENT OF [address] [place] [address] PATHOLOGY AND GENOMIC MEDICINE DANIEL [facility] [address] [place] [address] HOSPITAL * HCV Quantitative PCR (10/06/2018 2:13 PM INTAKE SPECIALIST) Only the most recent of 4 results within the time period is included. [facility] Hepatitis C <15 NOT DETECTED NOT DETECTED [...] of this assay have been determined by [employer] [facility]. The modifications have not been cleared or approved by the FDA. This assay has been validated pursuant to the CLIA regulations and is used for clinical purposes. For more information on this test, go to: http://education.[employer].com/faq/JFH26b1 (This link is being provided for informational/ educational purposes only.) Specimen Blood Resulting Agency Comment Performing Organization Information: Site ID: [id number] Name: [facility] Address: [address] [place] [address] Director: Dr. Alphonso Ernst Performing Organization Address [facility]/Zipcode Phone Number [email or web address] [address] [place] [address] II * Alpha fetoprotein (10/06/2018 2:13 PM INTAKE SPECIALIST) Only the most recent of 2 results within the time period is included. [facility] Alpha 2.3 <6.1 ng/mL [facility] fetoprotein Comment: [facility] This test was performed using ING II the Jose David Rissa chemiluminescent method. Values obtained from different assay methods cannot be used interchangeably. AFP levels, regardless of value, should not be interpreted as absolute evidence of the presence or absence of disease. Specimen Blood Resulting Agency Comment Performing Organization Information: Site ID: [id number] Name: [facility] Lab42[facility] Address: [address] [place] [id number] Director: Dr. Alphonso Ernst Performing Organization Address [facility] Phone Number [facility] [place] [address] [place] [address] II * Prothrombin time with INR (10/06/2018 2:13 PM INTAKE SPECIALIST) Only the most recent of 5 results within the time period is included. [facility] INR 1.1 [facility] Comment: [facility] Reference ING II Range 0.9-1.1 Moderate-intensity Warfarin Therapy 2.0-3.0 Higher-intensity Warfarin Therapy 3.0-4.0 Prothrombin 11.4 9.0 - 11.5 sec [facility] time Comment: [facility] For more information on this ING II test, go to: http://education.Agentrun/faq/ZJI700 Specimen Blood Resulting Agency Comment Performing Organization Information: Site ID: [id number] Name: [facility] Lab42[facility] Address: [address] [place] [phone] Director: Dr. Alphonso Ernst Performing Organization Address [facility] Phone Number [employer] [address] [place] [address] II * CBC with platelet and differential (10/06/2018 2:13 PM INTAKE SPECIALIST) Only the most recent of 5 results within the time period is included. [facility] WBC 7.4 3.8 - 10.8 [facility] Thousand/uL [...] Performing Organization Information: Site ID: IG Name: [facility] Address: [address] [place] [id number] Director: Dr. Alphonso Ernst Performing Organization Address City/[facility]/Zipcode Phone Number [employer] [address] [place] [address] II * GGT (10/06/2018 2:13 PM INTAKE SPECIALIST) Only the most recent of 3 results within the time period is included. GGT 25 3 - 85 U/L [facility] ING II Specimen Blood Resulting Agency Comment Performing Organization Information: Site ID: IG Name: [facility] Address: [address] [place] [phone] Director: Dr. Alphonso Ernst Performing Organization Address City/State/Zipcode Phone Number [employer] [address] [place] [address] II * Comprehensive metabolic panel (10/06/2018 2:13 PM INTAKE SPECIALIST) Only the most recent of 5 results within the time period is included. Glucose 128 (H) 65 - 99 mg/dL [...] approximately 13% higher for people identified as -Burmese. EGFR Non-Afr. 90 > OR=60 [facility] Burmese mL/min/1.73m2 [facility] ING II EGFR 104 > OR=60 [facility] Burmese mL/min/1.73m2 [facility] ING II BUN/creatinine NOT APPLICABLE [...] IG Name: [facility] Address: [address] [facility] [place], [place] [address] Director: Dr. Alphonso Ernst Performing Organization Address City/State/Zipcode Phone Number JOSE J BA [place] [phone] II * US Abdominal Doppler (07/08/2018 11:24 AM CDT) Specimen Narrative Performed At EXAMINATION:US ABDOMINAL DOPPLER RAD[facility] CLINICAL HISTORY:B17.10 Acute hepatitis C without [...] cm/s. Performing Organization Address City/State/Zipcode Phone Number [employer] [address] [place] [address] * US Liver with Elastography (07/08/2018 10:29 AM CDT) Specimen Narrative Performed At Abdominal ultrasound with liver elastography, 07/08/2018 [employer] Clinical history: Fatty liver. Hepatitis C. Fibrosis. [...] E9 with C1-6 Mhz probe below) GE [employer] E9 reference ranges: METAVIRSW velocity Stiffness F>01.35 [...] consistent with F>0 fibrosis. Splenomegaly. Procedure Note Interface, Radiology Results Incoming - 07/08/2018 2:02 [...] with C1- 6 Mhz probe below) GE [employer] E9 reference ranges: METAVIR SW velocity Stiffness [...] Performing Organization Address City/State/Zipcode Phone Number [facility] [address] [place] [address] * Hepatitis C viral RNA, quantitative real-time [...] of this assay have been determined by [facility]. The modifications have not been cleared or approved by the FDA. This assay has been validated pursuant to the CLIA regulations and is used for clinical purposes. For additional information, please refer to http://education.[employer].com/faq/NJV11d3 (This link is being provided for informational/ educational purposes only.) Specimen Resulting Agency Comment Performing Organization Information: Site ID: [id number] Name: [facility] Address: [address] [place] [phone] Director: Natalio Turner MD Performing Organization Address City/State/Zipcode Phone Number [place] [address] [address] [place] [address] [phone] after 04/26/2018 Insurance Type Payer Benefit Subscriber ID Effective Phone Address Plan / Dates Group HMO/PPO [facility] xxxxxxxxx 2019-P THCARE resent CHOICE/CHO ICE + Advance Directives Patient has advance care planning documents on file. For more information, theresa valencia contact: Star [place] [address] [place] [address]
[2019-04-27 13:50] VITALS: BP 128/80
--- NOTE | 2019-04-27 15:14 | Operative Report ---
DATE OF PROCEDURE: 04/27/2019 SURGEON: Shravan Soni MD PREOPERATIVE DIAGNOSIS: Left tonsil mass, rule out carcinoma of the left tonsil. POSTOPERATIVE DIAGNOSIS: Left tonsil mass, rule out carcinoma of the left tonsil. OPERATIVE PROCEDURE: Left tonsillectomy. ANESTHESIA: Dr. Verdin. INDICATIONS: This 58 years old male has a one year history of left posterior triangle mass. The patient has undergone a panendoscopy and left neck node biopsy. Left neck node biopsy returned as squamous cell carcinoma. The tongue base biopsy and panendoscopy did not give positive primary site. PET scan was done after the neck biopsy showed that a likely lesion in the left tonsil. It was decided left tonsillectomy to find a primary tumor and other necessary procedure will be beneficial for him. DESCRIPTION OF PROCEDURE: The patient was taken to operating room, put under general anesthesia, endotracheally intubated. He was put in Radha position and McIvor mouth gag was inserted. Left tonsil fossas were injected with 0.5% Marcaine with 1:200,000 epinephrine. The left tonsil was retracted medially. A plane was created between the tonsil and tonsillar bed. Dissection was carried down the inferior pole and tonsil was snared off. The right tonsil was examined, no abnormality was noted. Hemostasis in tonsillar fossa on the left side was achieved using the suction cautery. The tonsil on the left side after excision was sent for frozen section. The frozen section returned as squamous cell carcinoma. The oropharynx, oral cavity, and nasopharynx were irrigated with copious amount of normal saline. The stomach was suctioned out at the end of the procedure. The patient tolerated the above procedure well with estimated blood loss about 30 mL. He was given 20 mg of Decadron intraoperatively. The patient was able to be transferred to recovery room in stable condition. Shravan Soni MD DKH/MODL /[id number]
== END | disposition home or self-care (01) ==
LOC: OR 09:17
PROVIDERS: ATTEND Otolaryngology Otolaryngology/Facial Plastic Surgery
DX: C09.9 Malignant neoplasm of tonsil, unspecified (principal); C96.9 Malignant neoplasm of lymphoid, hematopoietic and related tissue, unspecified; A63.0 Anogenital (venereal) warts; F17.210 Nicotine dependence, cigarettes, uncomplicated; Z88.0 Allergy status to penicillin; Z88.1 Allergy status to other antibiotic agents; Z86.19 Personal history of other infectious and parasitic diseases
CPT/HCPCS: 42826; 88307; 88331; J0131; J1100; J2001; J2250; J2405; J2704; J3010; 88305